=== PATIENT | female | born 1960 | race Caucasian/White ===

== ENCOUNTER 2018-09-06 05:29 | Day surgery (SDC) | payer BC ==
[~2018-09-06] VITALS: Ht 170.2 cm; Wt 102.5 kg
[~2018-09-06 05:29] MED LIST: COQ10; GLUCOPHAGE1000 MG; GLUCOTROL XL 1010 MG; LIPITOR40 MG; NAPROXEN SODIU220 M1; PIOGLITAZONE15 MG
[2018-09-06 06:32] LABS: ANION GAP 14.8 mmol/L (8-16); CARBON DIOXIDE 27.6 mmol/L (21.0-32.0); CREATININE - SERUM 0.9 mg/dL (0.6-1.3); POTASSIUM - SERUM 4.4 mmol/L (3.5-5.1)
[2018-09-06 06:35] VITALS: BP 134/67; Ht 170.2 cm; Wt 102.5 kg
[2018-09-06 07:02] LABS: LYMPHOCYTES 27.4 % (15-50); MCH 29.7 pg (26.0-34.0); MCHC 33.3 g/dL (31.0-37.0); MEAN PLATELET VOLUME 11.2 fL (7.4-10.4); NEUTROPHILS 63.2 % (40-80); PLATELET COUNT 184 10x3/uL (130-400); RBC 4.38 10x6/uL (4.00-5.40); RDW 12.6 % (11.5-14.5); WBC 7.7 10x3/uL (4.8-10.8)
== END 2018-09-06 10:40 | disposition home or self-care (01) ==
LOC: D.OPS 05:29 → D.PAN 07:30 → D.OPS 07:30
PROVIDERS: ATTEND Orthopaedic Surgery
DX: S62.617A Displaced fracture of proximal phalanx of left little finger, initial encounter for closed fracture (principal); X58.XXXA Exposure to other specified factors, initial encounter; Z01.812 Encounter for preprocedural laboratory examination